=== PATIENT | male | born 1970 | race African-American/Black ===

== ENCOUNTER 2017-11-23 11:18 | Emergency (ER) | payer MEDICAID ==
[~2017-11-23] VITALS: Ht 177.8 cm; Wt 100.0 kg
[2017-11-23 12:04] LABS: BASOPHILS % 0.9 % (0.0-2.0); EOSINOPHILS % 0.6 % (0.0-5.0); HEMATOCRIT. 34.9 % (42.0-52.0); HEMOGLOBIN. 12.1 g/dL (14.0-18.0); LYMPHOCYTES % 23.6 % (20.0-50.0); MEAN CORPUSCULAR HEMOGLOBIN 41.1 pg (28.0-32.0); MEAN CORPUSCULAR VOLUME 118.2 fL (80.0-94.0); MEAN PLATELET VOLUME 10.5 fl (7.4-10.4); MONOCYTES % 11.4 % (2.0-8.0); NEUTROPHILS % 63.5 % (40.0-76.0); PLATELET 56 x1000/uL (130-400); RED BLOOD CELL COUNT 2.95 mill/uL (4.7-6.1); RED CELL DISTRIBUTION WIDTH 20.1 % (11.6-14.6)
[2017-11-23 12:09] LABS: CHLORIDE 102 mEq/L (98-107)
[2017-11-23 12:11] LABS: INR 1.6; PROTHROMBIN TIME 16.4 sec (9.4-11.6)
[2017-11-23 12:29] LABS: PLATELET ESTIMATE DECREASED
[2017-11-23 14:56] VITALS: BP 162/78
== END 2017-11-23 15:00 | disposition home or self-care (01) ==
LOC: ER 11:18
DX: K76.9 Liver disease, unspecified (principal); R60.1 Generalized edema; I10 Essential (primary) hypertension
CPT/HCPCS: 36415; 71045; 76700; 80053; 83880; 84484; 85025; 85610; 93005; 93970; 99285